=== PATIENT | female | born 1995 | race Caucasian/White ===

== ENCOUNTER 2017-02-15 14:21 | Emergency (ER) | payer OTHER | END 2017-02-15 16:37 | disposition home or self-care (01) | LOC: ER 14:21 | DX: O21.9 Vomiting of pregnancy, unspecified (principal); F41.9 Anxiety disorder, unspecified | CPT/HCPCS: 36415; 96361; 96374; J2550 ==

== ENCOUNTER 2017-03-04 15:54 | Emergency (ER) | payer OTHER | END 2017-03-04 17:46 | disposition home or self-care (01) | LOC: ER 15:54 | DX: O21.0 Mild hyperemesis gravidarum (principal); R30.0 Dysuria; F41.9 Anxiety disorder, unspecified; Z3A.12 12 weeks gestation of pregnancy | CPT/HCPCS: 36415; 87502; 96361; 96374 ==

== ENCOUNTER 2017-04-03 21:23 | Emergency (ER) | payer OTHER | END 2017-04-03 23:23 | disposition home or self-care (01) | LOC: ER 21:23 | DX: O99.352 Diseases of the nervous system complicating pregnancy, second trimester (principal); F41.9 Anxiety disorder, unspecified; Z3A.15 15 weeks gestation of pregnancy | CPT/HCPCS: 96361; 96365; 96375; J1200; J2765 ==

== ENCOUNTER 2017-05-24 12:04 | Emergency (ER) | payer OTHER | END 2017-05-24 12:30 | disposition left against medical advice (07) | LOC: ER 12:04 | DX: O21.0 Mild hyperemesis gravidarum (principal); O99.352 Diseases of the nervous system complicating pregnancy, second trimester; G43.909 Migraine, unspecified, not intractable, without status migrainosus; O99.342 Other mental disorders complicating pregnancy, second trimester; F41.9 Anxiety disorder, unspecified; Z3A.22 22 weeks gestation of pregnancy | CPT/HCPCS: 36415; 96374; 96375; J1100; J2765 ==